=== PATIENT | female | born 1985 | race Caucasian/White ===

== ENCOUNTER 2022-08-12 07:47 | Emergency (ER) | payer OTHER ==
[~2022-08-12] VITALS: Ht 167.6 cm; Wt 117.9 kg
[2022-08-12 07:58] VITALS: BP 161/94
--- NOTE | 2022-08-12 08:01 | NUR ---
PT AMBULATED TO LOBBY
--- NOTE | 2022-08-12 08:31 | NUR ---
37/F WALKED IN C/O RIGHT SIDED LOW BACK PAIN ONSET LAST NIGHT. DENIES FALL OR INJURY. AAO4, AMBULATORY, VITALS STABLE. REPORTS PAIN SHARP AND CONSTANT. PMH: DENIES
--- NOTE | 2022-08-12 09:03 | NUR ---
Dr. Regan is evaluating pt at bedside
[2022-08-12] MEDS ORDERED: KETOROLAC 30 MG/ML VIAL IM ONE (09:10)
--- NOTE | 2022-08-12 09:15 | NUR ---
Patient unable to void at this time.
--- NOTE | 2022-08-12 09:26 | NUR ---
Dr. Regan made aware of unable to void; water cup given. Pt states will try to void in 5 mins.
[2022-08-12 09:41] LABS: BASOPHILS % (AUTO) 0.4 % (0.0-2.0); EOSINOPHILS # (AUTO) 0.1 K/uL (0-0.4); EOSINOPHILS % (AUTO) 1.2 % (0.0-4.0); HEMATOCRIT 42.4 % (36-48); HEMOGLOBIN 13.9 g/dL (12.0-16.0); LYMPHOCYTES # (AUTO) 1.8 K/uL (2.5-16.5); LYMPHOCYTES % (AUTO) 15.7 % (20.5-51.1); MEAN CORPUSCULAR HEMOGLOBIN 28 pg (27-31); MEAN CORPUSCULAR HGB CONC 33 g/dL (33-37); MEAN CORPUSCULAR VOLUME 84.7 fL (80-94); MONOCYTES # (AUTO) 0.5 K/uL (0.8-1.0); MONOCYTES % (AUTO) 4.6 % (1.7-9.3); NEUTROPHILS # (AUTO) 8.8 K/uL (1.8-7.7); NEUTROPHILS % (AUTO) 78.1 % (42.2-75.2); PLATELET COUNT (AUTO) 258 K/uL (140-450); RED BLOOD CELL COUNT(AUTO) 5.01 MIL/uL (4.20-5.40); RED CELL DISTRIBUTION WIDTH 13.9 % (11.6-13.7); WHITE BLOOD COUNT (AUTO) 11.3 K/uL (4.8-10.8)
[2022-08-12 10:01] LABS: ALBUMIN 3.3 g/dL (3.4-5.0); ANION GAP 10.8 (8-16); CARBON DIOXIDE 29.5 mmol/L (21-32); CREATININE 0.7 mg/dL (0.6-1.3); POTASSIUM 4.3 mmol/L (3.5-5.1); TOTAL BILIRUBIN 0.4 mg/dL (0.0-1.0)
[2022-08-12 10:05] LABS: APPEARANCE,URINE CLEAR (CLEAR); BILIRUBIN,URINE NEGATIVE (NEGATIVE); BLOOD, URINE NEGATIVE (NEGATIVE); COLOR,URINE YELLOW (YELLOW); LEUKOCYTE ESTERASE ,URINE NEGATIVE (NEGATIVE); NITRITE, URINE NEGATIVE (NEGATIVE); UGLUCOSE 2+ (NEGATIVE)
[2022-08-12] MEDS ORDERED: MORPHINE SULFATE 4 MG/ML SYR IM ONE (10:50)
[2022-08-12] MEDS ORDERED: KETOROLAC 15 MG/ML VIAL IVP ONE (10:55)
[2022-08-12] MEDS ORDERED: ONDANSETRON 4 MG/2 ML VIAL IVP ONE (12:15)
[2022-08-12] MEDS ORDERED: MORPHINE SULFATE 4 MG/ML SYR IVP ONE (12:15)
--- NOTE | 2022-08-12 12:15 | NUR ---
Repeat BP 210/99; Dr. Regan made aware. Patient reports pain remains 10/10. Morphine 4mg IVP to be given.
--- NOTE | 2022-08-12 13:00 | NUR ---
US tech at bedside
[2022-08-12 13:40] VITALS: BP 172/94
--- NOTE | 2022-08-12 14:00 | NUR ---
Patient states no pain at this time. demurrage clerk in place. Bed locked in lowest position, side rails x 1. Water cup given. All pt needs met.
[2022-08-12] MEDS ORDERED: HYDR-5191 PO (14:02)
[2022-08-12] MEDS ORDERED: IBUP-2213 PO (14:02)
--- NOTE | 2022-08-12 14:20 | NUR ---
IV removed, catheter intact and site benign. Applied folded 4x4 gauze and tape to stop bleeding.
--- NOTE | 2022-08-12 14:25 | NUR ---
Patient discharged with v/s stable. Written and verbal after care instructions about ovarian cyst given and explained. Patient alert, oriented and verbalized understanding of instructions. Ambulatory with steady gait. All questions addressed prior to discharge. ID band removed. Patient advised to follow up with PMD. Rx of norco 5-325mg and motrin given. Patient educated on indication of medication including possible reaction and side effects. Opportunity to ask questions provided and answered. Addendum: 08/12/22 at 1426 by [email or web address] pt reports she is not driving home and someone will pick her up.
== END 2022-08-12 14:25 | disposition home or self-care (01) ==
LOC: MED 07:47
DX: R19.00 Intra-abdominal and pelvic swelling, mass and lump, unspecified site (principal)
CPT/HCPCS: 36415; 74176; 76830; 80053; 81003; 81025; 85025; 93976; 96372; 96374; 96375; 99285; J1885; J2270; J2405; Q0092